=== PATIENT | female | born 1980 | race Caucasian/White ===

== ENCOUNTER 2019-06-15 01:27 | Emergency (ER) | payer MEDICAID, OTHER ==
[~2019-06-15] VITALS: Ht 160 cm; Wt 81.1 kg
[2019-06-15] MEDS ORDERED: NS IV 1000 ML 1,000 ML IV ONE (01:42)
[2019-06-15 02:04] LABS: BASOPHILS % (AUTO) 0 % (0-10); EOSINOPHILS # (AUTO) 0.1 10^3/uL (0.0-0.3); EOSINOPHILS % (AUTO) 2 % (0-10); HEMATOCRIT 41 % (35-52); HEMOGLOBIN 13.6 G/DL (11.5-16.0); LYMPHOCYTES # (AUTO) 3.4 X 10^3 (1.0-4.0); LYMPHOCYTES % (AUTO) 43 % (12-44); MEAN CORPUSCULAR HEMOGLOBIN 31 PG (25-34); MEAN CORPUSCULAR HGB CONC 33 G/DL (32-36); MEAN CORPUSCULAR VOLUME 93 FL (80-99); MEAN PLATELET VOLUME 10.9 FL (7.4-10.4); MONOCYTES # (AUTO) 0.8 X 10^3 (0.0-1.0); MONOCYTES % (AUTO) 11 % (0-12); NEUTROPHILS # (AUTO) 3.5 X 10^3 (1.8-7.8); NEUTROPHILS % (AUTO) 44 % (42-75); PLATELET COUNT 134 10^3/uL (130-400); RED CELL DISTRIBUTION WIDTH 14.7 % (10.0-14.5); WHITE BLOOD COUNT 7.9 10^3/uL (4.3-11.0)
[2019-06-15 02:23] LABS: ALANINE AMINOTRANSFERASE 23 U/L (0-55); ALKALINE PHOSPHATASE 76 U/L (40-136); BILIRUBIN,TOTAL 0.5 MG/DL (0.1-1.0); BUN/CREATININE RATIO 6; CALCIUM 8.5 MG/DL (8.5-10.1); CARBON DIOXIDE 25 MMOL/L (21-32); CHLORIDE 116 MMOL/L (98-107); CREATININE SERUM 0.72 MG/DL (0.60-1.30); GFR ESTIMATED > 60; GLUCOSE 101 MG/DL (70-105); SALICYLATE < 5.0 MG/DL (5.0-20.0); SODIUM 149 MMOL/L (135-145); TOTAL PROTEIN 5.8 GM/DL (6.4-8.2)
[2019-06-15 02:25] LABS: ACETAMINOPHEN < 10 UG/ML (10-30)
[2019-06-15 02:42] LABS: TSH (THYROID ANALYZER) 1.12 UIU/ML (0.35-4.94)
[2019-06-15] MEDS ORDERED: KCL 10 MEQ TAB (MICRO K) PO ONE (03:45)
[2019-06-15 03:51] LABS: BILIRUBIN,URINE NEGATIVE (NEGATIVE); CLARITY,URINE CLEAR; COLOR,URINE YELLOW; GLUCOSE, URINE (UA) NEGATIVE (NEGATIVE); KETONES,URINE NEGATIVE (NEGATIVE); LEUKOCYTE ESTERASE ,URINE 2+ (NEGATIVE); NITRITE,URINE NEGATIVE (NEGATIVE); PH,URINE 7.5 (5-9); PROTEIN,URINE NEGATIVE (NEGATIVE)
[2019-06-15 04:11] LABS: BACTERIA,URINE FEW /HPF; RBC,URINE RARE /HPF; SQUAMOUS EPITHELIAL CELL,UR 0-2 /HPF
[2019-06-15 04:12] LABS: AMPHETAMINE SCREEN, URINE NEGATIVE (NEGATIVE); BARBITURATE SCREEN URINE NEGATIVE (NEGATIVE); BENZODIAZEPINES SCREEN URINE NEGATIVE (NEGATIVE); CANNABINOID SCREEN, URINE NEGATIVE (NEGATIVE); COCAINE SCREEN URINE NEGATIVE (NEGATIVE); METHADONE STAT NEGATIVE (NEGATIVE); METHAMPHETAMINE SCREEN URINE S NEGATIVE (NEGATIVE); OPIATE SCREEN URINE NEGATIVE (NEGATIVE); OXYCODONE STAT NEGATIVE (NEGATIVE); PROPOXYPHENE STAT NEGATIVE (NEGATIVE); TRICYCLIC ANTIDEPRESSANTS SCRE NEGATIVE (NEGATIVE)
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
--- NOTE | 2019-06-15 07:20 | NUR ---
FOOD TAKEN TO PT.
--- NOTE | 2019-06-15 08:39 | NUR ---
PT STATES SHE ATE ALL HER LUNCH.
[2019-06-15] MEDS ORDERED: LACTATED RINGERS 1,000 ML IV ONE (09:03)
--- NOTE | 2019-06-15 09:03 | NUR ---
MATHIEU POWER CONTACTED WITH CURRENT BLOOD ALCOHOL. MATHIEU STATES HE WILL COME SEE HER ONCE HER BLOOD ALCOHOL IS BELOW THE LEGAL LIMIT.
--- NOTE | 2019-06-15 10:00 | NUR ---
PT DENIES BEING SUICIDAL AT THIS TIME
--- NOTE | 2019-06-15 10:25 | NUR ---
PT CONTINUES TO SLEEP AT THIS TIME.
--- NOTE | 2019-06-15 10:27 | NUR ---
RESTING IN BED WITH EYES CLOSED.
--- NOTE | 2019-06-15 11:45 | NUR ---
MATHIEU POWER NOTIFIED OF REPEATED ETOH LEVEL ET STATES HE WILL BE OUT HERE IN ABOUT 30 MINUTES.
--- NOTE | 2019-06-15 11:55 | NUR ---
PT MOVED TO FAMILY ROOM DUE TO BUSY ER. PT NOT SUICIDAL AT THIS TIME.
--- NOTE | 2019-06-15 12:16 | NUR ---
MATHIEU PEAK HERE TO TALK TO THE PT.
--- NOTE | 2019-06-15 13:18 | NUR ---
PLANS ARE FOR PT TO GO TO THE [facility] IN [place] WITH ARRANGEMENTS MADE BY [facility].
[2019-06-15 13:44] VITALS: BP 159/99
== END 2019-06-15 13:44 | disposition home or self-care (01) ==
LOC: ER 01:30
DX: R45.851 Suicidal ideations (principal); F10.129 Alcohol abuse with intoxication, unspecified; E87.6 Hypokalemia; F17.210 Nicotine dependence, cigarettes, uncomplicated
CPT/HCPCS: 36415; 80053; 80306; 80320; 80329; 81000; 84443; 84703; 85025; 87088; 93005